=== PATIENT | male | born 1980 | race Two or more races ===

== ENCOUNTER 2020-08-01 05:32 | Inpatient (IN) | payer OTHER ==
[~2020-08-01] VITALS: Ht 185.4 cm; Wt 108.9 kg
[2020-08-01] VITALS (14 sets, daily range): BP systolic 92–139; BP diastolic 61–85
[~2020-08-01 05:32] MED LIST: ADDERALL 30 MG30 MG ORAL; LEXAPRO20 MG ORAL
[2020-08-01] MEDS ORDERED: Thrombin 5000 units TOPIC ONE (06:36)
[2020-08-01] MEDS ORDERED: Gelfoam Size TOPIC ONE (06:37)
[2020-08-01] MEDS ORDERED: Bacitracin 50000 Units Vial ONE (06:37)
[2020-08-01] MEDS ORDERED: fentaNYL 100 mcg/2 mL IV PRN (06:45)
[2020-08-01] MEDS ORDERED: Midazolam 2mg/2ml Inj IVP PRN (06:45)
[2020-08-01] MEDS ORDERED: Labetalol 5mg/ml 20ml vial IV PRN (06:45)
[2020-08-01] MEDS ORDERED: Meperidine 25mg/1ml Inj (FOR RIGORS ONLY) IV PRN (06:45)
[2020-08-01] MEDS ORDERED: Acetaminophen (Non formulary) 100 ML IV ONE (06:45)
[2020-08-01] MEDS ORDERED: Ketorolac 30mg Inj IV PRN ×2 (06:45)
[2020-08-01] MEDS ORDERED: oxyCODONE HCL/Acetaminophen 5/325mg ORAL PRN (06:45)
[2020-08-01] MEDS ORDERED: LR 1000ml 1,000 ML IVLG SCH (06:45)
[2020-08-01] MEDS ORDERED: DiphenhydrAMINE 50mg/ml Inj IVP PRN (06:45)
[2020-08-01] MEDS ORDERED: LORazepam Inj 2mg/ml 1ml IV PRN (06:45)
[2020-08-01] MEDS ORDERED: HYDROcodone/Acetamin 5/325 tab ORAL PRN ×2 (06:45→07:45)
[2020-08-01] MEDS ORDERED: Metoclopramide 10mg/2ml Inj IVP PRN ×2 (06:45→07:45)
[2020-08-01] MEDS ORDERED: Atropine Sulfate 0.4mg/ml inj IVP PRN (06:45)
[2020-08-01] MEDS ORDERED: HYDROcodone/Acetamin 7.5/325 tab ORAL PRN ×3 (06:45→07:45)
[2020-08-01] MEDS ORDERED: fentaNYL 100 mcg/2 mL IV ONE ×2 (06:54→07:41)
[2020-08-01] MEDS ORDERED: Lidocaine 1% MPF 10mg/ml 5ml ONE (06:55)
[2020-08-01] MEDS ORDERED: Lidocaine 1% Plain 30 ml INJ ONE ×2 (06:55→08:44)
[2020-08-01] MEDS ORDERED: Sodium Chloride 10ml vial INJ ONE (06:55)
[2020-08-01] MEDS ORDERED: Rocuronium Bromide 50mg/5ml Inj IV ONE (06:58)
[2020-08-01] MEDS ORDERED: propofoL 1,000mg/100ml IV ONE (07:00)
[2020-08-01] MEDS ORDERED: LR 1000ml ONE (07:00)
[2020-08-01] MEDS ORDERED: ceFAZolin sod 2 GM in NS 55 ML IVPB ONE (07:00)
[2020-08-01] MEDS ORDERED: Neostigmine 1mg/ml 10ml Inj ONE (07:00)
[2020-08-01] MEDS ORDERED: Sterile Water Irrig 1000ml IRRIG ONE (07:00)
[2020-08-01] MEDS ORDERED: Glycopyrrolate 0.2mg/ml 1ml Vial ONE ×2 (07:00→09:19)
[2020-08-01] MEDS ORDERED: NS Irrig 1000ml ONE (07:00)
--- NOTE | 2020-08-01 07:03 | Anethesia Preoperative Eval ---
Anesthesia Pre-op PMH/ROS General Date of Evaluation: Aug 01, 2020 Time of Evaluation: 07:01 Anesthesiologist: Rosalio ASA Score: ASA 2 Mallampati Score Class I : Soft palate, uvula, fauces, pillars visible Class II: Soft palate, uvula, fauces visible Class III: Soft palate, base of uvula visible Class IV: Only hard plate visible Mallampati Classification: Class II Surgeon: Jayne Diagnosis: Neck Pain Surgical Procedure: ACDF C6-7, ADR C5-6 Anesthesia History: none Family History: no anesthesia problems Allergies: Coded Allergies: No Known Allergies (Unverified , 07/27/20) Medications: see eMAR Patient NPO?: Yes Past Medical History Cardiovascular: Reports: HTN Gastrointestinal/Genitourinary: Reports: GERD Neurologic/Psychiatric: Reports: depression/anxiety, other - ADHD Other: obesity - BMI 33 Anesthesia Pre-op Phys. Exam Physician Exam Last Vital Signs Date Time Temp Pulse Resp B/P (MAP) Pulse Ox O2 Delivery O2 Flow Rate FiO2 08/01/20 06:10 Room Air 08/01/20 06:03 97.7 72 18 130/85 (100) 99 Constitutional: NAD Neurologic: CN 2-12 intact Cardiovascular: RRR Respiratory: CTA Gastrointestinal: S/NT/ND Airway Exam Mallampati Score: Class II MO: full ROM: limited Teeth: missing, intact Anesthesia Pre-op A/P Risk Assessment & Plan Assessment: ASA 2 Plan: GA, SED, GlideScope Status Change Before Surgery: No Pre-Antibiotics Dru Grams Ancef IV Given Within 1 Hr of Incision: Yes Time Given: 07:31 Adrián Santamaria MD Aug 01, 2020 07:03
--- NOTE | 2020-08-01 07:25 | Pre-Procedure Note/Attestation ---
Pre-Procedure Note/Attestation Complete Prior to Procedure Planned Procedure: not applicable Procedure Narrative: C56 artificial disc replacement and C67 anterior cervical discectomy and fusion Indications for Procedure Pre-Operative Diagnosis: C56 and C67 herniation Attestation I attest that I discussed the nature of the procedure; its benefits; risks and complications; and alternatives (and the risks and benefits of such alternatives), prior to the procedure, with the patient (or the patient's legal contracts representative). I attest that, if there was a reasonable possibility of needing a blood transfusion, the patient (or the patient's legal contracts representative) was given the [facility] standardized written summary, pursuant to the Rashawn Aicha Blood Safety Act ([place] Health and Safety Code # 1645, as amended). I attest that I re-evaluated the patient just prior to the surgery and that there has been no change in the patient's H&P, except as documented below: Jan Godoy MD Aug 01, 2020 07:25
--- NOTE | 2020-08-01 07:26 | Brief Operative Note ---
Immediate Post Operative Note Operative Note Chief Complaint: neck pain and radic Pre-op Diagnosis: C56 and C67 herniation Procedure: C56 artificial disc replacement and C67 anterior cervical discectomy and fusion Post-op Diagnosis: same as pre-op Findings: consistent w/pre-op dx studies Surgeon: Jayne Substitute Crossing Guard: Linda Anesthesiologist: Rosalio Anesthesia: general Specimen: none Complications: none Condition: stable Fluids: IVF Estimated Blood Loss: minimal Drains: none Implant(s) used?: Yes - prodisc c and nuvasiver interlock screws 3x13mm Jan Godoy MD Aug 01, 2020 07:26
[2020-08-01] MEDS ORDERED: Morphine Sulfate 2mg/ml Inj(IV/IM USE ONLY) IV PRN (07:45)
[2020-08-01] MEDS ORDERED: Chloraseptic Spray 20mL Bottle ORAL PRN ×2 (07:45)
[2020-08-01] MEDS ORDERED: Milk of Magnesia 30ml Ud ORAL PRN (07:45)
[2020-08-01] MEDS ORDERED: HYDROmorphone 1mg/ml Carpuject IVP PRN (07:45)
[2020-08-01] MEDS ORDERED: Naloxone 0.4mg/ml Inj IVP PRN (07:45)
[2020-08-01] MEDS ORDERED: Morphine Sulfate 4mg/ml Inj (IV USE ONLY) IV PRN ×2 (07:45)
--- NOTE | 2020-08-01 08:04 | Immediate Post-Op Evaluation ---
Immediate Post-Op Evalulation Immediate Post-Op Evalulation Procedure: ACDF C6-7, ADR C5-6 Date of Evaluation: Aug 01, 2020 Time of Evaluation: 10:07 IV Fluids: 1000 LR Blood Products: 0 Estimated Blood Loss: 50 Urinary Output: 0 Blood Pressure Systolic: 92 Blood Pressure Diastolic: 67 Pulse Rate: 70 Respiratory Rate: 16 O2 Sat by Pulse Oximetry: 100 Temperature (Fahrenheit): 97.5 Pain Score (1-10): 2 Nausea: No Vomiting: No Complications 0 Patient Status: awake, reacts, patent, extubated, none Hydration Status: adequate Dru Grams Ancef IV Given Within 1 Hr of Incision: Yes Time Given: 07:31 Adrián Santamaria MD Aug 01, 2020 08:04
--- NOTE | 2020-08-01 08:05 | 48 Hour Post Anesthesia Eval ---
Post Anesthesia Evaluation Procedure: ACDF C6-7, ADR C5-6 Date of Evaluation: Aug 01, 2020 Time of Evaluation: 12:13 Blood Pressure Systolic: 121 0: 78 Pulse Rate: 76 Respiratory Rate: 18 Temperature (Fahrenheit): 98 O2 Sat by Pulse Oximetry: 100 Airway: patent Nausea: No Vomiting: No Pain Intensity: 2 Hydration Status: adequate Cardiopulmonary Status: Stable Mental Status/LOC: patient returned to baseline Follow-up Care/Observations: 0 Post-Anesthesia Complications: 0 Follow-up care needed: N/A Adrián Santamaria MD Aug 01, 2020 08:05
[2020-08-01] MEDS: Hydromorphone 0.5mg/0.5ml inj IVP PRN ×2 (10:12→10:45)
--- NOTE | 2020-08-01 11:45 | NUR ---
NURSE NOTES: RECIEVED PT FROM [facility] VIA BED ACCOMPANIED BY NSG STAFF,EYES CLOSED,EASILY AROUSABLE. V/S TAKEN AND RECORDED.S/P ADR C4-C7 ALDF C5-C6 ,DERMABAND DRESSING W/ ICE PACK INPLACED.CALL LIGHT WITHIN REACH @ ALL TIMES.WILL CONTINUE TO MONITOR.
--- NOTE | 2020-08-01 11:59 | Diagnostic Imaging Report ---
. INDICATION: Pain, intraoperative TECHNIQUE: Intraoperative imaging Fluoroscopy time: 41.6 seconds Total dose: 0.29304 mGym2 Total number of images: 5 COMPARISON: None FINDINGS: Intraoperative images demonstrate localizer total projected initially over the C5-6 disc, subsequent to a projected at the anterior aspect of the C6-7 disc. Subsequent images document placement of a disc prosthesis at C5-6, and anterior fusion hardware at C6-7 IMPRESSION: Intraoperative imaging, as described
--- NOTE | 2020-08-01 12:21 | NUR ---
CASE MANAGEMENT:INITIAL REVIEW 40 YR OLD MALE FROM HOME FOR SCHEDULED SURGERY CC;NECK PAIN. RADICULOPATHY. C56 AND C67 HERNIATION SI;C56 ARTIFICIAL DISC REPLACEMENT C67 ANTERIOR CERVICAL DISCECTOMY AND FUSION 97.7 72 18 92/67 99% ON RA COVID RAPID ~ NOT DETECTED CERVICAL SPINE XRAY ~ Intraoperative imaging, as described IS;VANCOMYCIN IV DILAUDID IV IVF LR ACETAMINOPHEN IV ADMITTED TO MED SURG FOR POST OP CARE MED SURG STATUS DCP;PENDING HOSPITAL STAY
[2020-08-01] MEDS ORDERED: NS w/KCl 20mEq 1000ml 1,000 ML IV SCH (13:00)
--- NOTE | 2020-08-01 14:30 | NUR ---
NURSE NOTES: AMBULATE W/ PHYSICAL THERAPY , STEADY GAIT NO SIGN OF DIZZINESS NOTED.
--- NOTE | 2020-08-01 14:33 | NUR ---
P.T Note: P.T evaluation completed and tx initiated per spinal protocol. Please refer to P.T evaluation for current functional status.
[2020-08-01] MEDS ORDERED: ceFAZolin sod 1 GM in D5W 55 ML IV SCH (15:30)
[2020-08-01] MEDS ORDERED: Docusate 100mg cap ORAL SCH (18:00)
--- NOTE | 2020-08-01 19:22 | NUR ---
HAND-OFF: Report given to WATSON WELCH.
[2020-08-01] MEDS ORDERED: NORCO 10/3251 EA ORAL (19:33)
[2020-08-01] MEDS ORDERED: CARISOPRODOL350 MG ORAL (19:35)
[2020-08-01] MEDS ORDERED: CEPHALEXIN500 MG ORAL (19:47)
[2020-08-01] MEDS ORDERED: Tubing IV Secondary IV ONE (20:29)
--- NOTE | 2020-08-01 20:30 | NUR ---
NURSE NOTES: Patient for discharge. Patient is awake, alert x 4. Vital signs normal. No s/s of distress noted. Iv site removed. All belongings with patient. Discharge paper given to the patient and signed. Picked up by mother.
--- NOTE | 2020-08-02 06:44 | Operative Note - Dictated ---
DATE OF OPERATION: 08/01/2020 SURGEON: Jan Godoy MD, Orthopedic Spine Surgeon. TECHNICAL SALES SUPPORT SPECIALIST: NASH Hernandez PREOPERATIVE DIAGNOSES: 1. Intractable neck pain. 2. Radiculopathy. 3. Herniation, C5-6, C6-7. 4. Neuroforaminal stenosis, C5-6, C6-7. 5. Stenosis. POSTOPERATIVE DIAGNOSES: 1. Intractable neck pain. 2. Radiculopathy. 3. Herniation, C5-6, C6-7. 4. Neuroforaminal stenosis, C5-6, C6-7. 5. Stenosis. PROCEDURE PERFORMED: 1. Anterior cervical diskectomy and artificial disc replacement of of C5-6 using NuVasive interlock C, size 6 with 1 mL of Osteocel allograft bone and three screws of 13 mm length. 2. Anterior cervical diskectomy and artificial disc replacement of of C6-7 using NuVasive interlock C, size 6 with 1 mL of Osteocel allograft bone and three screws of 13 mm length. 3. Use of intraoperative microscope. 4. Motor evoked potential monitoring. 5. Somatosensory evoked potential monitoring. 6. Supervision and interpretation of fluoroscopy. COMPLICATIONS: None. ANESTHESIA: General. ANESTHESIOLOGIST: Adrián Santamaria MD ESTIMATED BLOOD LOSS: Less than 100 cc. INDICATIONS FOR SURGERY: This patient is a 40-year-old male who has a history of intractable neck pain, radiculopathy, herniation, C5-6, C6-7, neuroforaminal stenosis, C5-6, C6-7, stenosis. As of result of this, the patient sustained intractable neck pain, radiculopathy, herniation, C5-6, C6-7, neuroforaminal stenosis, C5-6, C6-7, stenosis. We tried a course of conservative management but despite this course there was still a significant component of persistent, recalcitrant neck pain and arm pain. The MRI demonstrated significant neuroforaminal compromise secondary to disc herniations at C5-6, C6-7. We had a long discussion with the patient regarding the risks and benefits of surgery. Our discussion included but was not limited to nonoperative management, chiropractic management, another epidural steroid injection as well definitive management in the form of surgery. We recommended an C5-6, C6-7 as final definitive management. We reviewed the risks and benefits of surgery with the patient. Our discussion included a comprehensive review of the clinical issues and the nature of the clinical decision. We reviewed the alternatives, including doing nothing. The patient elected to proceed accordingly with anterior cervical diskectomy and artificial disc replacement of of C5-6 using NuVasive interlock C, size 6 with 1 mL of Osteocel allograft bone and three screws of 13 mm length. We had a long discussion regarding the risks, alternatives and benefits of surgery. Our description of the risks included a discussion in person as well as a signed consent which detailed all pertinent risks from the procedure itself. Briefly, our discussion included but was not limited to infection, bleeding, pseudarthrosis, spinal cord injury, neurovascular injury, dural tear, CSF leak, neuropathy, paralysis, permanent weakness/drop foot/drop arm, paresthesias, blindness, palsy and weakness. The patient understood there may be a need for a revision surgery or additional procedures. Approach-related complications including dysphonia, dysphagia, blindness, permanent vocal cord and neural injury, hematoma, swallowing and breathing difficulty. Medical complications were reviewed including liver, kidney, shock, cardiopulmonary failure, anesthesia complications including , swelling, damage to the musculature, larynx/voice injury or loss, esophagus/throat, trachea, blood vessels and muscles/muscular sprain and lungs/pneumothorax during this surgical procedure; injury to deeper structures may be temporary or permanent. After this review of risks, the patient understood these and elected to proceed. A written and verbal consent was given. We discussed the pros and cons of all the alternatives. We discussed the uncertainties associated with the decision. Afterwards I assessed the patient understanding and explored their preferences. All questions were answered and no guarantees were given. Medical clearance was obtained prior to surgery. INTRAOPERATIVE FINDINGS: Cervical 5-6; anterior to cervical C5-6, there are no bone spurs or osteophytes. The disc itself was soft and spongy upon removal of the majority of the disc. Again, upon the posterior longitudinal ligament on the left side, I noticed a large tear in the PLL in line with the fibers, approximately 50 degrees. The torn edges appeared fresh. The disc itself was not calcified or dehydrated leading me to believe, in combination with the tear in the PLL, this was more acute in nature. Once the edges of the torn PLL were probed with a Microsect 1B curette, this gave rise to fragments of nucleus pulposus, which were protruding on the neural foramina posteriorly and causing neural foraminal impingement. The disc, which had extruded, was resected with a combination of Kerrison 1 and Kerrison 2 rongeur as well as Calle pituitary. Cervical 6-7; at C6-7, I noted no appreciable bone spurs or osteophytes. The disc itself was appropriately distracted in terms of the disc height. Upon removal of the majority of the disc, I found the disc to be spongy and soft and appropriately hydrated. There was no calcification of the disc. Upon inspection of the posterior longitudinal ligament, I noted a tear in the PLL at approximately the 2 o'clock position on the patient's left side. The edges of the tear were fresh, leading me to believe this was an acute herniation. This edges were probed with a Microsect 1B and 2B curette, which gave rise to nuclear pulposus tissue causing severe amount of encroachment on the neural foramina and impingement. This was resected with a combination of Kerrison 1 and Kerrison 2 rongeurs as well as the Calle pituitary. DESCRIPTION OF PROCEDURE: Under the benefit of general endotracheal anesthesia and with the assistance of the entire operative team, the patient was [facility] the operative table in the supine position. The head was secured and carefully positioned appropriately. Bilateral arms were secured with Gelpads and foam and all bony prominences were padded. For the bilateral lower extremities SCD and NUBIA hose were placed for DVT prophylaxis. A surgical timeout was called which corroborated our planned procedure of anterior cervical diskectomy and artificial disc replacement of of C5-6 using NuVasive interlock C, size 6 with 1 mL of Osteocel allograft bone and three screws of 13 mm length. Preoperative Antibiotics were administered within 30 minutes of the incision for Antibiotic prophylaxis. Using lateral fluoroscopic radiography, the operative levels were delineated. Next the wound was prepped and draped with Chlorhexidine and sterile drapes. An incision was based on lateral fluoroscopy and we centered our incision at the C5-6, C6-7 interspace and next using a standard Kahlil-Avalos anterior based approach the incision was taken down through the skin and subcutaneous tissues until the vertebral bodies and their corresponding disc spaces were visualized. A needle was placed into the interspace to confirm placement of the operative interspace and we performed the remainder of procedure under microscopic visualization. Next using a bipolar and Bovie cautery to ensure meticulous hemostasis, the longus colli was mobilized bilaterally and retractors were placed deep to the longus colli bilaterally to address retraction. Next we turned our attention to the radical anterior diskectomy. This was initially performed at C5-6. First by using a 15 blade scalpel followed by narrow pituitaries and a micro-sect 5-B curette was used to denude the endplate of all cartilaginous tissue. Next using a kWhOURS AM8 drill bit the partial vertebrectomy was performed in a [id number] and layer by layer fashion, and ultimately the posterior uncinate joints bilaterally and posterior osteophytic lips and margins causing central and lateral impingement were carefully denuded until visualization of the posterior longitudinal ligament was possible. An endplate preparation was performed in the exact same fashion using an intervertebral steam fitter supervisor, sequential distraction was obtained throughout the disk space. We saw a tear/rent in the PLL and this was carefully mobilized and dissected using a micro-set 1-B curet until we visualized a broad-based disk herniation with compression of the spinal cord as well neural foramina. This neuroforaminal compression was carefully resected using a Kerrison-1 and Kerrison-2 rongeurs until complete decompression of the spinal cord was visualized and complete decompression of the neural foramina and nerve root therein as well as the axilla and lateral margin of the nerve root was visualized and subsequently completely decompressed. The family was notified at one hour intervals throughout the procedure to provide for consistent updates. We next turned our attention towards trialing our implant within the disk space. We initially tried size 5 and the ProDisc Cervical spacer fit well in regards to depth and width. This implant was opened and prepared. Next under direct visualization I confirmed excellent fit in respect to the anterior and posterior vertebral bodies, the uncinate joints and in regards to toggle. Once satisfied with this placement on serial AP and Lateral fluoroscopy I turned my attention towards cutting our linus. These were cut in the bones using a reciprocating drill and afterwards all free fragments of bone were irrigated. Next FloSeal was placed into the interspace and the implant was inserted using fluoroscopic guidance. Next the Synthes ProDisc C size 5 ADR was then carefully advanced and secured into the intervertebral space under direct visualization and with supervision of AP and lateral fluoroscopic views. This was then performed at the next level, C6-7. We initially tried size 5 and afterwards size 6 trial from the NuVasive interlock C, size 6 at each level, which appeared to be appropriate under AP and lateral fluoroscopy as well as in terms of its height, depth, width and lack of toggle. The PEEK polyetheretherketone interbody cages were then both packed with allograft bone from Osteocel and local autograft bone matrix. Next these were then carefully advanced and secured into their intervertebral spaces under direct visualization and with supervision of AP and lateral fluoroscopic views. We next turned our attention towards plating. Plating was performed with NuVasive interlock C, size 6. A total of 3 screws, size 13 mm in length were inserted and confirmed under AP and lateral fluoroscopy and confirmed to be in excellent position. After a finger sweep we confirmed removal of all sponges. The retractor was removed and we next turned our attention to meticulous hemostasis with FloSeal and bipolar cautery. After the sponge and needle count was again found to be correct with our second count, we next turned our attention to closure. The wound was again copiously irrigated with antibiotic impregnated saline. Closure consisted of 4-0 clear nylon for the platysma,and 6-0 clear nylon for the superficial skin. Final skin closure and dressings consisted of Dermabond. Prior to final closure, a final radiograph was obtained which demonstrated the hardware is intact with excellent position throughout. The patient tolerated the procedure well. The patient was carefully extubated after the conclusion of surgery. We discussed the findings of the surgery with the family upon completion of the case. At this point the patient was transferred to the spine floor for further observation. Jan Godoy M.D. DR: DARSHAN JOB#: [id number] CC:
--- NOTE | 2020-08-03 15:31 | Discharge Summary ---
Discharge Summary Discharge Summary _ Date of admission: 08/01/2020 Date of discharge: 08/01/[address] Godoy History of Present Illness and Brief Hospital Course Mr. Alonzo is a 40-year-old male with past medical history of intractable neck pain who presented to the hospital for a scheduled procedure. Before it was dec ided to perform the procedure, we tried a course of conservative management but he persistently had neck pain and arm pain. The MRI demonstrated significant neuroforaminal compromise secondary to disc herniations at C5-6, and C6-7. After thorough discussion of risks and benefits, patient agreed to proceed with anterior cervical discectomy and artificial disc replacement of C5-6 using NuVasive interlocks each, size 6 with 1 mL of Osteocel allograft bone and 3 screws of 13 mm in length. The patient tolerated the procedure well. Patient was carefully extubated after the conclusion of surgery. Patient was transferred to the spine floor for further observation. After the surgery, patient was evaluated by a physical therapist. Patient was found ambulating with steady gait without signs of dizziness. After observation. Patient was medically stable for discharge. Patient was alert and oriented x4 without signs of distress. Consultants: None Discharge Condition Advance as tolerated Final diagnoses Radiculopathy Herniation at C5-6, C6-7 Neuroforaminal stenosis C5-6, C6-7 Stenosis Status post anterior cervical discectomy and artificial disc replacement of C5-6 using NuVasive interlocks E, size 6 with 1 mL of osteocel allograft bone and 3 screws of 13 mm in length I have been assigned to dictate discharge summary for this account. I was not involved in the patient's management Arden Quinn Aug 03, 2020 15:31
== END 2020-08-01 20:30 | disposition home or self-care (01) | DRG 518 ==
LOC: SDSOVERFLO 05:32 → 3E 11:43
PROC: 0RR30JZ Replacement of Cervical Vertebral Disc with Synthetic Substitute, Open Approach (ICD-10-PCS; principal; 2020-08-01 07:00)
DX: M50.122 Cervical disc disorder at C5-C6 level with radiculopathy (principal); M48.02 Spinal stenosis, cervical region; F90.9 Attention-deficit hyperactivity disorder, unspecified type; T14.90XS Injury, unspecified, sequela; V89.2XXS Person injured in unspecified motor-vehicle accident, traffic, sequela
CPT/HCPCS: 36415; 72040; 76000; 86850; 86900; 86901; 87081; 94003; 94150; J2405; J2710